=== PATIENT | female | born 1945 | race Two or more races ===

== ENCOUNTER → 2017-04-21 | Outpatient (CLI) | payer MEDICARE, OTHER ==
--- NOTE | 2017-04-21 17:44 | RADRPT ---
PROCEDURE: XR pelvis/right hip. CLINICAL INDICATION: Hip pain TECHNIQUE: AP pelvis/lateral right hip view performed. COMPARISON: No prior studies are available for comparison. FINDINGS: There is a right total hip replacement. There is no evidence of loosening of the prosthesis. No hard hernandez failure is identified. There is mild left hip osteoarthrosis. This is associated with joint space narrowing, subchondral sc lerosis and osteophytosis. There is normal osseous mineralization. No fractures or osseous lesions are identified. The soft tissues are unremarkable. IMPRESSION: Right total hip replacement. Mild left hip osteoarthrosis. RPTAT: [facility] .Fahad Boykin MD, MD Date Time Electronically viewed and signed by .Fahad Boykin MD, on 04/21/2017 17:44 .B/
--- NOTE | 2017-04-22 07:16 | HKNOTE ---
DATE OF SERVICE: 04/21/2017 MAIN COMPLAINT: Pain in the right hip. HISTORY OF MAIN COMPLAINT: The patient is a 72-year-old female who underwent a right hip replacemen t which was performed by me in 2004. She has been exceedingly pleased with the results of the surge ry. She has never had a single moment of trouble with it. Lately she has developed pain in her right buttock and lower back. She was told that this is from a pinched nerve. She had a lumbar epidural cortisone yesterday which has given her about a 50% impro vement. Injection given by Dr. Duncan. The patient indicates that she wants to be sure that the problem is not coming from her hip and she wants an x-ray and a checkup by Dr. Ba. She was given an excellent summary of her history. It will be typed up She refused to fill out any other forms. She has absolutely no pain in the right groin. She can walk as far as she likes. PHYSICAL EXAMINATION: HIPS: The right hip has a full range of motion without pain. IMAGING: Plain x-rays of her pelvis and hips obtained today at the [facility] (2 views) show an absolutely perfect right total hip replacement. All components are well aligned and well attached to the bone. There is no evidence of wear at the socket. MANAGEMENT: The patient gave reassurance that her problems are absolutely not from her right hip. The left hip looks excellent, it is unlikely she will ever need surgery on her left hip. We discuss ed for some time the possible longevity of the right hip and activities that she can and cannot do. Note that she fractured her right ankle at some point, and she continues to have trouble. She had internal fixation of the ankle. She requests the name of an ankle specialist. She is being referre d to Dr. Jesus Mckeon. She will be seen again as necessary. DIAGNOSES: 1. Status post right total hip replacement. 2. Right-sided sciatica. 3. Arthritis of the right ankle. Dictated By: LILIYA PENA/STANISLAW Conf#: [id number] DID#: [id number]
== END | disposition home or self-care (01) ==
LOC: HKI 14:31
DX: M25.551 Pain in right hip (principal); M54.31 Sciatica, right side; M13.871 Other specified arthritis, right ankle and foot; Z96.641 Presence of right artificial hip joint
CPT/HCPCS: 73502; G0463